=== PATIENT | male | born 1960 | race Caucasian/White ===

== ENCOUNTER 2017-01-10 18:17 | Inpatient (IN) | payer MEDICARE, MEDICAID ==
[~2017-01-10] VITALS: Ht 172.7 cm; Wt 86.2 kg
[~2017-01-10 18:17] MED LIST: ASPI325T2 PO; DOCU-138 PO; INSLAN SQ; KDUR20 PO; KEPP500 PO; LEVO500T15 PO; METF10002 PO; METO25TA6 PO; SIMV40TA2 PO; SITA100T6 PO
[2017-01-10] MEDS ORDERED: SODIUM CHLORIDE 0.9% 1,000 ML IV ONE (18:27)
[2017-01-10] MEDS ORDERED: LEVETIRACETAM 1,000 MG in SODIUM CHLORIDE 0.9% 100 ML IV ONE (18:30)
[2017-01-10 19:14] LABS: DIFFERENTIAL COMMENT 0; HEMATOCRIT. 38.2 % (42.0-52.0); HEMOGLOBIN. 12.8 g/dL (14.0-18.0); LYMPHOCYTES % 14.1 % (20.0-50.0); MEAN CORPUSCULAR HEMOGLOBIN 26.4 pg (28.0-32.0); MEAN CORPUSCULAR HGB CONC 33.6 g/dL (31.0-37.0); MEAN CORPUSCULAR VOLUME 78.5 fL (80.0-94.0); MEAN PLATELET VOLUME 8.7 fl (7.4-10.4); MONOCYTES % 6.2 % (2.0-8.0); NEUTROPHILS % 75.7 % (40.0-76.0); PLATELET 324 x1000/uL (130-400); RED BLOOD CELL COUNT 4.86 mill/uL (4.7-6.1); RED CELL DISTRIBUTION WIDTH 13.1 % (11.6-14.6); WHITE BLOOD COUNT 16.4 x1000/uL (4.5-11.0)
[2017-01-10 19:21] LABS: CHLORIDE 96 mEq/L (98-107); INDEX HEMOLYSI 1 (1-3); INDEX ICTERIC 1 (1-4); INDEX LIPEMIC 1 (1-3)
[2017-01-10 19:23] LABS: AMMONIA 17 uMol/L (<32); INDEX HEMOLYSI 1 (1-3); PROTHROMBIN TIME 10.2 sec
[2017-01-10 19:27] LABS: ACETAMINOPHEN < 2 ug/mL (10-30); ALANINE AMINOTRANSFERASE 35 IU/L (13-61); ALBUMIN 3.3 g/dL (3.4-5.0); ANION GAP 14; CALCIUM 9.1 mg/dL (8.5-10.1); CARBON DIOXIDE 28 mEq/L (21-32); CREATINE KINASE 42 IU/L (39-308); ETHANOL BLOOD < 10 mg/dL; LIPASE 747 IU/L (73-393); PHENYTOIN 0.6 ug/mL (10-20); TROPONIN I < 0.02 ng/mL (0.00-0.04); UREA NITROGEN BLOOD 12 mg/dL (7-21); eGFR > 60 mL/min (>60)
[2017-01-10 19:31] LABS: CARBAMAZEPINE < 0.5 ug/mL (4-12); PHENOBARBITAL < 2.1 ug/mL (15.0-40.0)
[2017-01-10 19:33] LABS: THYROID STIMULATING HORMONE 0.95 uIU/mL (0.36-3.74)
[2017-01-10 19:34] LABS: VALPROIC ACID 3.2 ug/mL (50-100)
[2017-01-10 21:10] LABS: CLARITY URINE CLEAR (CLEAR); COLOR URINE YELLOW (YELLOW); GLUCOSE URINE 3+ (NEGATIVE); KETONES URINE NEGATIVE (NEGATIVE); LEUKOCYTE ESTERASE URINE NEGATIVE (NEGATIVE); NITRITE URINE NEGATIVE (NEGATIVE); OCCULT BLOOD URINE 1+ (NEGATIVE); PROTEIN URINE 4+ (NEGATIVE); SPECIFIC GRAVITY URINE 1.016 (1.005-1.030); UROBILINOGEN URINE 0.2 E.U./dL (0.2-1.0)
[2017-01-10 21:37] LABS: BACTERIA URINE TRACE; SQUAMOUS EPITHELIAL CELL URINE NONE SEEN /lpf (RARE/1+); WBC URINE 0-2 /hpf (0-2)
[2017-01-10] MEDS ORDERED: ACETAMINOPHEN 325MG TABLET PO STA (23:12)
[2017-01-10] MEDS ORDERED: LABETALOL HCL 20MG/4ML CARPUJECT IV ONE (23:15)
[2017-01-10] MEDS ORDERED: LABETALOL 5MG/ML SYR 20 MG/4 ML SYRINGE IV NR (23:30)
[2017-01-11] VITALS (7 sets, daily range): BP systolic 140–176; BP diastolic 77–94
[2017-01-11] MEDS ORDERED: MAGNESIUM/ALUMINUM HYDROXIDE/SIMETHICONE 30ML UDC PO PRN
[2017-01-11] MEDS ORDERED: IPRATROPIUM/ALBUTEROL 0.5-3(2.5)MG/3ML NEB INH PRN
[2017-01-11] MEDS ORDERED: DEXTROSE 50% WATER 50ML SYRINGE IV PRN (00:45)
[2017-01-11] MEDS ORDERED: PHENYTOIN SODIUM 1,000 MG in SODIUM CHLORIDE 0.9% 100 ML IV NR (01:00)
[2017-01-11] MEDS ORDERED: VANCOMYCIN 1 G PREMIX 200 ML IV NR (03:00)
[2017-01-11] MEDS: CLONIDINE 0.1MG TABLET PO PRN ×2 (04:35→17:29)
[2017-01-11] MEDS: BLOOD SUGAR DIAGNOSTIC STRIP TEST SCH ×4 (05:46→20:26)
[2017-01-11] MEDS ORDERED: PIPERACILLIN/TAZ 3.375G PREMIX 50 ML IV SCH (06:00)
[2017-01-11] MEDS: INSULIN LISPRO 100 UNITS/ML SUBCUT SCH ×4 (06:16→22:00)
[2017-01-11] MEDS: PHENYTOIN SODIUM EXTENDED 100MG CAPSULE PO SCH ×3 (06:16→21:56)
[2017-01-11 06:59] LABS: ANION GAP 14; CALCIUM 8.7 mg/dL (8.5-10.1); CARBON DIOXIDE 28 mEq/L (21-32); CHLORIDE 97 mEq/L (98-107); HDL CHOLESTEROL 45 mg/dL (40-59); INDEX HEMOLYSI 1 (1-3); INDEX ICTERIC 1 (1-4); INDEX LIPEMIC 1 (1-3); LDL CHOLESTEROL 114 mg/dL (5-100); TRIGLYCERIDE 339 mg/dL (0-150); UREA NITROGEN BLOOD 11 mg/dL (7-21); eGFR > 60 mL/min (>60)
[2017-01-11 07:03] LABS: BASOPHILS % 0.7 % (0.0-2.0); DIFFERENTIAL COMMENT 0; EOSINOPHILS % 0.3 % (0.0-5.0); HEMATOCRIT. 38.4 % (42.0-52.0); HEMOGLOBIN. 12.8 g/dL (14.0-18.0); LYMPHOCYTES % 15.8 % (20.0-50.0); MEAN CORPUSCULAR HEMOGLOBIN 26.6 pg (28.0-32.0); MEAN CORPUSCULAR HGB CONC 33.3 g/dL (31.0-37.0); MEAN CORPUSCULAR VOLUME 79.9 fL (80.0-94.0); MEAN PLATELET VOLUME 9.1 fl (7.4-10.4); MONOCYTES % 7.1 % (2.0-8.0); NEUTROPHILS % 76.1 % (40.0-76.0); PLATELET 311 x1000/uL (130-400); RED BLOOD CELL COUNT 4.81 mill/uL (4.7-6.1); RED CELL DISTRIBUTION WIDTH 13.2 % (11.6-14.6); WHITE BLOOD COUNT 15.8 x1000/uL (4.5-11.0)
[2017-01-11 07:04] LABS: CREATINE KINASE 45 IU/L (39-308); CREATINE KINASE MB FRACTION 0.5 ng/mL (0.5-3.6); INDEX HEMOLYSI 1 (1-3); TROPONIN I < 0.02 ng/mL (0.00-0.04)
[2017-01-11 08:18] LABS: *AMPHETAMINES SCREEN URINE NEGATIVE (NEGATIVE); *BARBITURATES SCREEN URINE NEGATIVE (NEGATIVE); *BENZODIAZEPINES SCREEN URINE NEGATIVE (NEGATIVE); *COCAINE SCREEN URINE NEGATIVE (NEGATIVE); CANNABINOID URINE SCREEN NEGATIVE (NEGATIVE); ECSTASY MDMA SCREEN URINE NEGATIVE (NEGATIVE); METHADONE URINE SCREEN NEGATIVE (NEGATIVE); OPIATES URINE SCREEN NEGATIVE (NEGATIVE); PHENCYCLIDINE URINE SCREEN NEGATIVE (NEGATIVE)
[2017-01-11] MEDS ORDERED: LEVETIRACETAM 500MG TABLET PO SCH (09:00)
[2017-01-11] MEDS ORDERED: VANCOMYCIN 750 MG PREMIX 150 ML IV SCH (11:00)
[2017-01-11] MEDS: ACETAMINOPHEN 325MG TABLET PO PRN ×2 (11:30→20:43)
[2017-01-11] MEDS: CEFEPIME 2,000 MG in DEXT 5% WATER 100 ML IV SCH ×2 (15:32→23:59)
[2017-01-11 17:54] LABS: CREATINE KINASE 50 IU/L (39-308); CREATINE KINASE MB FRACTION < 0.5 ng/mL (0.5-3.6); INDEX HEMOLYSI 1 (1-3); PHENYTOIN 10.7 ug/mL (10-20); TROPONIN I < 0.02 ng/mL (0.00-0.04)
[2017-01-11] MEDS: ONDANSETRON HCL 4MG/2ML VIAL IV PRN (20:36)
[2017-01-11] MEDS: LEVETIRACETAM 250MG TABLET PO SCH (20:43)
[2017-01-11] MEDS: VANCOMYCIN 1 G PREMIX 200 ML IV SCH (20:46)
[2017-01-12] VITALS: BP 147/82
[2017-01-12 04:00] VITALS: BP 166/94
[2017-01-12] MEDS: PHENYTOIN SODIUM EXTENDED 100MG CAPSULE PO SCH ×3 (05:26→21:02)
[2017-01-12] MEDS: CLONIDINE 0.1MG TABLET PO PRN ×2 (05:26→23:46)
[2017-01-12] MEDS: ACETAMINOPHEN 325MG TABLET PO PRN ×3 (05:41→23:41)
[2017-01-12] MEDS: VANCOMYCIN 1 G PREMIX 200 ML IV SCH ×2 (06:07→13:15)
[2017-01-12] MEDS: BLOOD SUGAR DIAGNOSTIC STRIP TEST SCH ×4 (06:07→20:46)
[2017-01-12] MEDS: INSULIN LISPRO 100 UNITS/ML SUBCUT SCH ×4 (06:17→21:02)
[2017-01-12 08:00] VITALS: BP 125/86
[2017-01-12] MEDS ORDERED: METFORMIN HCL 500MG TABLET PO SCH (08:20)
[2017-01-12 08:25] LABS: BASOPHILS % 0.7 % (0.0-2.0); EOSINOPHILS % 0.2 % (0.0-5.0); HEMATOCRIT. 34.4 % (42.0-52.0); HEMOGLOBIN. 11.4 g/dL (14.0-18.0); LYMPHOCYTES % 15.9 % (20.0-50.0); MEAN CORPUSCULAR HEMOGLOBIN 26.6 pg (28.0-32.0); MEAN CORPUSCULAR VOLUME 80.6 fL (80.0-94.0); MEAN PLATELET VOLUME 9.3 fl (7.4-10.4); MONOCYTES % 9.5 % (2.0-8.0); NEUTROPHILS % 73.7 % (40.0-76.0); PLATELET 266 x1000/uL (130-400); RED BLOOD CELL COUNT 4.27 mill/uL (4.7-6.1); RED CELL DISTRIBUTION WIDTH 13.1 % (11.6-14.6)
[2017-01-12] MEDS: ATORVASTATIN CALCIUM 20MG TABLET PO SCH (08:31)
[2017-01-12] MEDS: LEVETIRACETAM 250MG TABLET PO SCH ×2 (08:31→21:02)
[2017-01-12] MEDS: CEFEPIME 2,000 MG in DEXT 5% WATER 100 ML IV SCH ×2 (08:32→21:02)
[2017-01-12] MEDS: DOCUSATE SODIUM 100MG CAPSULE PO SCH ×2 (08:32→17:37)
[2017-01-12 08:39] LABS: CALCIUM 8.5 mg/dL (8.5-10.1); PHENYTOIN 7.5 ug/mL (10-20)
[2017-01-12] MEDS ORDERED: MEDICATION NOT ON FORMULARY EA (Sitagliptin Phosphate (Januvia) 100 MG) PO SCH (09:00)
[2017-01-12] MEDS ORDERED: MEDICATION NOT ON FORMULARY EA (Simvastatin (Zocor) 40 MG) PO SCH (09:00)
[2017-01-12] MEDS: LINAGLIPTIN 5MG TABLET PO SCH (09:56)
[2017-01-12] MEDS ORDERED: PHENYTOIN SODIUM 500 MG in SODIUM CHLORIDE 0.9% 50 ML IV NR (11:30)
[2017-01-12 12:00] VITALS: BP 157/85
[2017-01-12 16:00] VITALS: BP 184/96
[2017-01-12] MEDS: LOSARTAN POTASSIUM 100 MG TABLET PO SCH (16:30)
[2017-01-12] MEDS: HYDROCODONE/ACETAMINOPHEN 5/325MG TABLET PO PRN ×2 (16:33→20:59)
[2017-01-12] MEDS: ONDANSETRON HCL 4MG/2ML VIAL IV PRN (18:00)
[2017-01-12 20:00] VITALS: BP 158/86
[2017-01-12] MEDS: INSULIN DETEMIR UD 100 UNITS/ML SYR SUBCUT SCH (21:40)
[2017-01-13] VITALS: BP 165/98
[2017-01-13 04:00] VITALS: BP 157/89
[2017-01-13] MEDS: BLOOD SUGAR DIAGNOSTIC STRIP TEST SCH ×4 (05:41→20:30)
[2017-01-13] MEDS: ACETAMINOPHEN 325MG TABLET PO PRN ×3 (05:56→23:33)
[2017-01-13] MEDS: PHENYTOIN SODIUM EXTENDED 100MG CAPSULE PO SCH ×2 (05:56→17:01)
[2017-01-13 06:31] LABS: BASOPHILS % 0.8 % (0.0-2.0); DIFFERENTIAL COMMENT 0; EOSINOPHILS % 0.2 % (0.0-5.0); HEMOGLOBIN. 11.7 g/dL (14.0-18.0); LYMPHOCYTES % 12.4 % (20.0-50.0); MEAN CORPUSCULAR HEMOGLOBIN 26.5 pg (28.0-32.0); MEAN CORPUSCULAR HGB CONC 33.3 g/dL (31.0-37.0); MEAN CORPUSCULAR VOLUME 79.6 fL (80.0-94.0); MEAN PLATELET VOLUME 8.8 fl (7.4-10.4); MONOCYTES % 8.1 % (2.0-8.0); NEUTROPHILS % 78.5 % (40.0-76.0); PLATELET 269 x1000/uL (130-400); RED BLOOD CELL COUNT 4.39 mill/uL (4.7-6.1)
[2017-01-13] MEDS: INSULIN LISPRO 100 UNITS/ML SUBCUT SCH ×4 (06:37→21:09)
[2017-01-13 07:01] LABS: CALCIUM 8.5 mg/dL (8.5-10.1); PHENYTOIN 11.1 ug/mL (10-20)
[2017-01-13 08:00] VITALS: BP 149/81
[2017-01-13] MEDS: LOSARTAN POTASSIUM 100 MG TABLET PO SCH (09:11)
[2017-01-13] MEDS: ATORVASTATIN CALCIUM 20MG TABLET PO SCH (09:11)
[2017-01-13] MEDS: CEFEPIME 2,000 MG in DEXT 5% WATER 100 ML IV SCH ×2 (09:11→20:03)
[2017-01-13] MEDS: LINAGLIPTIN 5MG TABLET PO SCH (09:11)
[2017-01-13] MEDS: LEVETIRACETAM 250MG TABLET PO SCH ×2 (09:12→20:27)
[2017-01-13] MEDS: DOCUSATE SODIUM 100MG CAPSULE PO SCH ×2 (09:12→17:01)
[2017-01-13] MEDS: METOPROLOL TARTRATE 25MG TABLET PO SCH ×2 (09:12→20:26)
[2017-01-13 09:26] LABS: INDEX HEMOLYSI 1 (1-3); INDEX ICTERIC 1 (1-4); INDEX LIPEMIC 1 (1-3); IRON 44 ug/dL (50-175); TOTAL IRON BINDING CAPACITY 252 ug/dL (250-450)
[2017-01-13] MEDS: INSULIN DETEMIR UD 100 UNITS/ML SYR SUBCUT SCH ×2 (10:50→21:09)
[2017-01-13] MEDS: HYDROCODONE/ACETAMINOPHEN 5/325MG TABLET PO PRN (11:37)
[2017-01-13 12:00] VITALS: BP 165/86
[2017-01-13] MEDS: CLONIDINE 0.1MG TABLET PO PRN (13:04)
[2017-01-13 16:00] VITALS: BP 124/75
[2017-01-13 20:00] VITALS: BP 110/61
[2017-01-13] MEDS: VANCOMYCIN 1 G PREMIX 200 ML IV SCH (21:08)
[2017-01-14] VITALS: BP 146/80
[2017-01-14 04:00] VITALS: BP 151/84
[2017-01-14] MEDS: BLOOD SUGAR DIAGNOSTIC STRIP TEST SCH ×4 (05:49→21:33)
[2017-01-14] MEDS: ACETAMINOPHEN 325MG TABLET PO PRN ×3 (05:51→18:12)
[2017-01-14 05:55] LABS: BASOPHILS % 0.8 % (0.0-2.0); DIFFERENTIAL COMMENT 0; EOSINOPHILS % 1.8 % (0.0-5.0); HEMATOCRIT. 34.2 % (42.0-52.0); HEMOGLOBIN. 11.4 g/dL (14.0-18.0); LYMPHOCYTES % 16.7 % (20.0-50.0); MEAN CORPUSCULAR HEMOGLOBIN 26.6 pg (28.0-32.0); MEAN CORPUSCULAR HGB CONC 33.3 g/dL (31.0-37.0); MEAN CORPUSCULAR VOLUME 79.9 fL (80.0-94.0); MEAN PLATELET VOLUME 9.1 fl (7.4-10.4); MONOCYTES % 8.6 % (2.0-8.0); NEUTROPHILS % 72.1 % (40.0-76.0); PLATELET 271 x1000/uL (130-400); RED BLOOD CELL COUNT 4.28 mill/uL (4.7-6.1); RED CELL DISTRIBUTION WIDTH 12.9 % (11.6-14.6); WHITE BLOOD COUNT 14.9 x1000/uL (4.5-11.0)
[2017-01-14] MEDS: INSULIN LISPRO 100 UNITS/ML SUBCUT SCH ×4 (06:28→21:44)
[2017-01-14 06:36] LABS: CALCIUM 8.2 mg/dL (8.5-10.1)
[2017-01-14 08:00] VITALS: BP 128/73
[2017-01-14] MEDS: METOPROLOL TARTRATE 25MG TABLET PO SCH ×2 (08:34→21:00)
[2017-01-14] MEDS: PHENYTOIN SODIUM EXTENDED 100MG CAPSULE PO SCH ×2 (08:34→18:11)
[2017-01-14] MEDS: CEFEPIME 2,000 MG in DEXT 5% WATER 100 ML IV SCH (08:35)
[2017-01-14] MEDS: LEVETIRACETAM 250MG TABLET PO SCH ×2 (08:35→21:35)
[2017-01-14] MEDS: ATORVASTATIN CALCIUM 20MG TABLET PO SCH (08:35)
[2017-01-14] MEDS: LOSARTAN POTASSIUM 100 MG TABLET PO SCH (08:35)
[2017-01-14] MEDS: DOCUSATE SODIUM 100MG CAPSULE PO SCH ×2 (08:35→18:11)
[2017-01-14] MEDS: LINAGLIPTIN 5MG TABLET PO SCH (08:35)
[2017-01-14] MEDS ORDERED: PHENYTOIN SODIUM 600 MG in SODIUM CHLORIDE 0.9% 100 ML IV NR (09:00)
[2017-01-14] MEDS: INSULIN DETEMIR UD 100 UNITS/ML SYR SUBCUT SCH ×2 (10:10→21:43)
[2017-01-14 12:00] VITALS: BP 114/63
[2017-01-14] MEDS ORDERED: PHENYTOIN SODIUM EXTENDED 100MG CAPSULE PO NR (14:30)
[2017-01-14 20:00] VITALS: BP 102/60
[2017-01-14] MEDS: VANCOMYCIN 1 G PREMIX 200 ML IV SCH (21:35)
[2017-01-14] MEDS: HYDROCODONE/ACETAMINOPHEN 5/325MG TABLET PO PRN (22:17)
[2017-01-15] VITALS: BP 117/70
[2017-01-15 04:00] VITALS: BP 141/82
[2017-01-15] MEDS: BLOOD SUGAR DIAGNOSTIC STRIP TEST SCH ×4 (06:02→21:39)
[2017-01-15] MEDS: INSULIN LISPRO 100 UNITS/ML SUBCUT SCH ×4 (06:07→21:51)
[2017-01-15 07:39] LABS: CALCIUM 8.1 mg/dL (8.5-10.1); PHENYTOIN 12.8 ug/mL (10-20)
[2017-01-15 08:00] VITALS: BP 133/73
[2017-01-15 08:27] LABS: BASOPHILS % 0.6 % (0.0-2.0); EOSINOPHILS % 4.2 % (0.0-5.0); HEMATOCRIT. 34.8 % (42.0-52.0); HEMOGLOBIN. 11.4 g/dL (14.0-18.0); MEAN CORPUSCULAR HEMOGLOBIN 26.4 pg (28.0-32.0); MEAN CORPUSCULAR HGB CONC 32.8 g/dL (31.0-37.0); MEAN CORPUSCULAR VOLUME 80.6 fL (80.0-94.0); MEAN PLATELET VOLUME 9.6 fl (7.4-10.4); MONOCYTES % 8.3 % (2.0-8.0); NEUTROPHILS % 74.9 % (40.0-76.0); PLATELET 255 x1000/uL (130-400); RED BLOOD CELL COUNT 4.32 mill/uL (4.7-6.1); RED CELL DISTRIBUTION WIDTH 12.9 % (11.6-14.6); WHITE BLOOD COUNT 14.7 x1000/uL (4.5-11.0)
[2017-01-15] MEDS: PHENYTOIN SODIUM EXTENDED 100MG CAPSULE PO SCH ×2 (10:31→17:10)
[2017-01-15] MEDS: LEVETIRACETAM 250MG TABLET PO SCH ×2 (10:32→21:39)
[2017-01-15] MEDS: ATORVASTATIN CALCIUM 20MG TABLET PO SCH (10:33)
[2017-01-15] MEDS: DOCUSATE SODIUM 100MG CAPSULE PO SCH ×2 (10:34→17:10)
[2017-01-15] MEDS: LINAGLIPTIN 5MG TABLET PO SCH (10:34)
[2017-01-15] MEDS: LOSARTAN POTASSIUM 100 MG TABLET PO SCH (10:34)
[2017-01-15] MEDS: METOPROLOL TARTRATE 25MG TABLET PO SCH ×2 (10:34→21:40)
[2017-01-15] MEDS: INSULIN DETEMIR UD 100 UNITS/ML SYR SUBCUT SCH ×2 (10:36→21:49)
[2017-01-15] MEDS: ACETAMINOPHEN 325MG TABLET PO PRN (10:43)
[2017-01-15 12:00] VITALS: BP 126/71
[2017-01-15] MEDS: LINEZOLID 600 MG PREMIX 300 ML IV SCH ×2 (12:25→21:40)
[2017-01-15 16:00] VITALS: BP 122/67
[2017-01-15 20:00] VITALS: BP 127/68
[2017-01-15] MEDS: HYDROCODONE/ACETAMINOPHEN 5/325MG TABLET PO PRN (21:52)
[2017-01-16] VITALS: BP 135/79
[2017-01-16 04:00] VITALS: BP 143/75
[2017-01-16 06:09] LABS: BASOPHILS % 0.5 % (0.0-2.0); EOSINOPHILS % 4.8 % (0.0-5.0); HEMATOCRIT. 31.7 % (42.0-52.0); HEMOGLOBIN. 10.5 g/dL (14.0-18.0); LYMPHOCYTES % 13.6 % (20.0-50.0); MEAN CORPUSCULAR HEMOGLOBIN 26.7 pg (28.0-32.0); MEAN CORPUSCULAR HGB CONC 33.1 g/dL (31.0-37.0); MEAN CORPUSCULAR VOLUME 80.7 fL (80.0-94.0); MEAN PLATELET VOLUME 9.6 fl (7.4-10.4); MONOCYTES % 8.3 % (2.0-8.0); NEUTROPHILS % 72.8 % (40.0-76.0); PLATELET 247 x1000/uL (130-400); RED BLOOD CELL COUNT 3.92 mill/uL (4.7-6.1); RED CELL DISTRIBUTION WIDTH 13.3 % (11.6-14.6); WHITE BLOOD COUNT 16.1 x1000/uL (4.5-11.0)
[2017-01-16] MEDS: INSULIN LISPRO 100 UNITS/ML SUBCUT SCH ×2 (06:20→12:57)
[2017-01-16] MEDS: BLOOD SUGAR DIAGNOSTIC STRIP TEST SCH ×2 (06:20→11:45)
[2017-01-16 06:52] LABS: PHENYTOIN 10.6 ug/mL (10-20)
[2017-01-16 08:00] VITALS: BP 145/74
[2017-01-16] MEDS: ATORVASTATIN CALCIUM 20MG TABLET PO SCH (09:12)
[2017-01-16] MEDS: METOPROLOL TARTRATE 25MG TABLET PO SCH (09:13)
[2017-01-16] MEDS: PHENYTOIN SODIUM EXTENDED 100MG CAPSULE PO SCH (09:13)
[2017-01-16] MEDS: LINAGLIPTIN 5MG TABLET PO SCH (09:14)
[2017-01-16] MEDS: LEVETIRACETAM 250MG TABLET PO SCH (09:14)
[2017-01-16] MEDS: DOCUSATE SODIUM 100MG CAPSULE PO SCH (09:14)
[2017-01-16] MEDS: LOSARTAN POTASSIUM 100 MG TABLET PO SCH (09:14)
[2017-01-16] MEDS: LINEZOLID 600 MG PREMIX 300 ML IV SCH (09:16)
[2017-01-16] MEDS: INSULIN DETEMIR UD 100 UNITS/ML SYR SUBCUT SCH (10:30)
[2017-01-16 12:00] VITALS: BP 131/71
[2017-01-16 14:12] VITALS: BP 131/71
[2017-01-16 16:00] VITALS: BP 121/63
== END 2017-01-16 17:05 | disposition home or self-care (01) | DRG 871 ==
LOC: ER 18:18 → 5WST 22:24
PROVIDERS: ADMIT Internal Medicine; ATTEND Internal Medicine
PROC: 02HV33Z Insertion of Infusion Device into Superior Vena Cava, Percutaneous Approach (ICD-10-PCS; principal; 2017-01-11)
PROC: B5181ZA Fluoroscopy of Superior Vena Cava using Low Osmolar Contrast, Guidance (ICD-10-PCS; 2017-01-11)
PROC: B548ZZA Ultrasonography of Superior Vena Cava, Guidance (ICD-10-PCS; 2017-01-11)
DX: A41.02 Sepsis due to Methicillin resistant Staphylococcus aureus (principal); G92 Toxic encephalopathy; G91.9 Hydrocephalus, unspecified; I67.82 Cerebral ischemia; J98.11 Atelectasis; B69.0 Cysticercosis of central nervous system; N17.9 Acute kidney failure, unspecified; I69.354 Hemiplegia and hemiparesis following cerebral infarction affecting left non-dominant side; I10 Essential (primary) hypertension; I16.0 Hypertensive urgency; D64.9 Anemia, unspecified; G40.909 Epilepsy, unspecified, not intractable, without status epilepticus; E11.65 Type 2 diabetes mellitus with hyperglycemia; E78.00 Pure hypercholesterolemia, unspecified; E78.5 Hyperlipidemia, unspecified; F17.200 Nicotine dependence, unspecified, uncomplicated; Y90.0 Blood alcohol level of less than 20 mg/100 ml; Z79.82 Long term (current) use of aspirin; Z79.84 Long term (current) use of oral hypoglycemic drugs; Z79.899 Other long term (current) drug therapy; Z91.19 Patient's noncompliance with other medical treatment and regimen; Z98.2 Presence of cerebrospinal fluid drainage device; Z98.890 Other specified postprocedural states
CPT/HCPCS: 36415; 36569; 70450; 70551; 71010; 76770; 76937; 77001; 80048; 80053; 80061; 80156; 80165; 80184; 80185; 80202; 80302; 80305; 80329; 81001; 82140; 82542; 82550; 82553; 82962; 83036; 83540; 83550; 83605; 83690; 84443; 84484; 85025; 85610; 85651; 87040; 87070; 87077; 87086; 87205; 93005; 93970; 96365; 96366; 96375; 99291; A6261; A9547; C1725; G0482; J0692; J1165; J1815; J1953; J2020; J2405; J2543; J3370; J3490; J7030; J7040; J7050; J7060

== ENCOUNTER 2022-11-09 23:07 | Emergency (ER) | payer MEDICARE, MEDICAID ==
[~2022-11-09] VITALS: Ht 172.7 cm; Wt 78.0 kg
[~2022-11-09 23:07] MED LIST changes: +ASPI-986 PO; -ASPI325T2 PO; -LEVO500T15 PO; +LEVO500T2 PO; +METF-416 PO; -METF10002 PO; +SITA100T11 PO; -SITA100T6 PO
[2022-11-10] MEDS ORDERED: ALBUTEROL (0.5%) 2.5MG/0.5ML NEB HHN ONE (00:15)
[2022-11-10 00:19] LABS: BASOPHILS % 0.8 % (0.0-2.0); EOSINOPHILS % 6.5 % (0.0-5.0); HEMATOCRIT. 27.4 % (42.0-52.0); HEMOGLOBIN. 9.1 g/dL (14.0-18.0); LYMPHOCYTES % 12.4 % (20.0-50.0); MEAN CORPUSCULAR HEMOGLOBIN 26.8 pg (28.0-32.0); MEAN CORPUSCULAR VOLUME 81.2 fL (80.0-94.0); MONOCYTES % 8.8 % (2.0-8.0); NEUTROPHILS % 71.5 % (40.0-76.0); PLATELET 404 x1000/uL (130-400); RED BLOOD CELL COUNT 3.37 mill/uL (4.7-6.1); RED CELL DISTRIBUTION WIDTH 14.4 % (11.6-14.6)
[2022-11-10 00:25] LABS: CHLORIDE 101 mEq/L (98-107)
[2022-11-10] MEDS ORDERED: CLONIDINE 0.2MG TABLET PO NR (02:00)
[2022-11-10 10:07] VITALS: BP 134/58
[2022-11-10] MEDS ORDERED: HYDROCODONE/ACETAMINOPHEN 5/325MG TABLET PO PRN (12:00)
[2022-11-10] MEDS ORDERED: ONDANSETRON HCL 4MG/2ML INJ IV PRN (12:00)
[2022-11-10] MEDS ORDERED: LORAZEPAM 0.5MG TABLET PO PRN (12:00)
[2022-11-10] MEDS ORDERED: CLONIDINE 0.1MG TABLET PO PRN (12:00)
[2022-11-10] MEDS ORDERED: DOCUSATE SODIUM 100MG CAPSULE PO PRN (12:00)
[2022-11-10] MEDS ORDERED: IPRATROPIUM/ALBUTEROL 0.5-3(2.5)MG/3ML NEB HHN PRN (12:00)
[2022-11-10] MEDS ORDERED: ASPIRIN 81MG TABLET PO SCH (12:00)
[2022-11-10] MEDS ORDERED: ACETAMINOPHEN 325MG TABLET PO PRN ×2 (12:00)
[2022-11-10] MEDS ORDERED: NALOXONE HCL 0.4MG/ML VIAL IV PRN (12:15)
[2022-11-10] MEDS ORDERED: METOPROLOL TARTRATE 25MG TABLET PO SCH (12:30)
[2022-11-10 14:17] LABS: TOTAL IRON BINDING CAPACITY 208 ug/dL (250-450)
[2022-11-10 14:42] LABS: FERRITIN 111 ng/mL (22-322)
[2022-11-10 15:21] LABS: FOLIC ACID (FOLATE) SERUM >20 ng/mL ng/mL (>5.38); VITAMIN B12 SERUM 895 pg/mL (211-911)
[2022-11-10] MEDS ORDERED: DOCUSATE SODIUM 100MG CAPSULE PO SCH (17:00)
[2022-11-10] MEDS ORDERED: LEVETIRACETAM 500MG TABLET PO SCH (17:00)
[2022-11-10] MEDS ORDERED: ATORVASTATIN CALCIUM 40MG TABLET PO SCH (21:00)
== END 2022-11-10 12:44 | disposition left against medical advice (07) ==
LOC: ER 23:07 → CANBEDREQ 11-11 01:52
DX: I16.1 Hypertensive emergency (principal); E11.65 Type 2 diabetes mellitus with hyperglycemia; J96.00 Acute respiratory failure, unspecified whether with hypoxia or hypercapnia; E78.00 Pure hypercholesterolemia, unspecified; I25.2 Old myocardial infarction; G40.909 Epilepsy, unspecified, not intractable, without status epilepticus; H54.7 Unspecified visual loss; I25.10 Atherosclerotic heart disease of native coronary artery without angina pectoris; D72.829 Elevated white blood cell count, unspecified; D72.821 Monocytosis (symptomatic); Z86.73 Personal history of transient ischemic attack (TIA), and cerebral infarction without residual deficits; Z86.61 Personal history of infections of the central nervous system; Z20.822 Contact with and (suspected) exposure to COVID-19; Z89.422 Acquired absence of other left toe(s); Z89.421 Acquired absence of other right toe(s); Z79.84 Long term (current) use of oral hypoglycemic drugs; Z79.82 Long term (current) use of aspirin; Z79.899 Other long term (current) drug therapy
CPT/HCPCS: 36415; 71045; 80053; 82607; 82728; 82746; 83540; 83550; 83880; 84145; 84484; 85025; 87426; 87804; 93005; 94640; 99285; C9803

== ENCOUNTER 2023-02-12 00:29 | Inpatient (IN) | payer MEDICARE, MEDICAID ==
[~2023-02-12] VITALS: Ht 172.7 cm; Wt 82.6 kg
[~2023-02-12 00:29] MED LIST changes: +SIMV-345 PO; -SIMV40TA2 PO
[2023-02-12] MEDS ORDERED: NITROGLYCERIN 50MG PREMIX 250 ML IV ONE (00:45)
[2023-02-12] MEDS ORDERED: NITROGLYCERIN 50MG PREMIX 250 ML IV NR (02:45)
[2023-02-12 02:46] LABS: BASOPHILS % 1.1 % (0.0-2.0); EOSINOPHILS % 3.4 % (0.0-5.0); HEMATOCRIT. 33.5 % (42.0-52.0); HEMOGLOBIN. 11.1 g/dL (14.0-18.0); LYMPHOCYTES % 8.9 % (20.0-50.0); MEAN CORPUSCULAR HEMOGLOBIN 27.1 pg (28.0-32.0); MEAN CORPUSCULAR VOLUME 81.8 fL (80.0-94.0); MONOCYTES % 5.3 % (2.0-8.0); NEUTROPHILS % 81.3 % (40.0-76.0); RED CELL DISTRIBUTION WIDTH 14.2 % (11.6-14.6)
[2023-02-12 02:49] LABS: CLARITY URINE CLEAR (CLEAR); COLOR URINE YELLOW (YELLOW); KETONES URINE NEGATIVE (NEGATIVE); LEUKOCYTE ESTERASE URINE NEGATIVE (NEGATIVE); NITRITE URINE NEGATIVE (NEGATIVE); OCCULT BLOOD URINE NEGATIVE (NEGATIVE); PH URINE 6.5 (4.5-8.0); PROTEIN URINE 3+ (NEGATIVE); SPECIFIC GRAVITY URINE 1.012 (1.005-1.030); UROBILINOGEN URINE 0.2 E.U./dL (0.2-1.0)
[2023-02-12 02:55] LABS: CHLORIDE 102 mEq/L (98-107)
[2023-02-12 02:56] LABS: D-DIMER 1.08 mg/L FEU (<0.50); PROTHROMBIN TIME 10.9 sec (9.6-11.0)
[2023-02-12 03:01] LABS: *AMPHETAMINES SCREEN URINE NEGATIVE (NEGATIVE); *BARBITURATES SCREEN URINE NEGATIVE (NEGATIVE); *BENZODIAZEPINES SCREEN URINE NEGATIVE (NEGATIVE); *COCAINE SCREEN URINE NEGATIVE (NEGATIVE); CANNABINOID URINE SCREEN NEGATIVE (NEGATIVE); METHADONE URINE SCREEN NEGATIVE (NEGATIVE); OPIATES URINE SCREEN NEGATIVE (NEGATIVE); PHENCYCLIDINE URINE SCREEN NEGATIVE (NEGATIVE)
[2023-02-12 03:04] LABS: ETHANOL BLOOD < 10 mg/dL
[2023-02-12] MEDS ORDERED: ASPIRIN 325MG EC TABLET PO ONE (04:30)
[2023-02-12] MEDS ORDERED: HEPARIN 5000 UNITS/ML VIAL IV ONE (04:30)
[2023-02-12] MEDS ORDERED: DOCUSATE SODIUM 100MG CAPSULE PO PRN (08:30)
[2023-02-12] MEDS ORDERED: GUAIFENESIN 200MG/10ML SUGAR FREE UDC PO PRN (08:30)
[2023-02-12] MEDS ORDERED: ACETAMINOPHEN 325MG TABLET PO PRN (08:30)
[2023-02-12] MEDS ORDERED: CLONIDINE 0.1MG TABLET PO PRN (08:30)
[2023-02-12] MEDS ORDERED: ASPIRIN 81MG EC TABLET PO SCH (09:00)
[2023-02-12 09:06] LABS: BG BASE EXCESS 0.1 mmol/L (-2.0-2.0); BG DEOXYHEMOGLOBIN 4.4 % (0.0-5.0); BG HCO3 ACT 24.7 mmol/L (22.0-26.0); BG METHEMOGLOBIN 0.2 % (0.0-1.5); BG OXYGEN SATURATION 95.6 % (92.0-98.5); BG OXYHEMOGLOBIN 95.4 % (94.0-97.0); BG PCO2 40.1 mmHg (35.0-45.0); BG PH 7.408 (7.350-7.450); BG PO2 78.1 mmHg (75.0-100.0); BG SAMPLE SITE RIGHT BRACHIAL; BG TOTAL HEMOGLOBIN 9.2 g/dL (12.0-18.0); BG VENT MODE ROOM AIR
[2023-02-12] MEDS ORDERED: DEXTROSE 50% WATER 50ML SYRINGE IV PRN (10:00)
[2023-02-12] MEDS: INSULIN LISPRO 100 UNITS/ML SUBCUT SCH ×2 (13:20→21:00)
[2023-02-12] MEDS: BLOOD SUGAR DIAGNOSTIC STRIP TEST SCH ×3 (13:36→20:30)
[2023-02-12] MEDS ORDERED: AZITHROMYCIN 500MG/250ML 250 ML IV NR (14:30)
[2023-02-12] MEDS ORDERED: PIPERACILLIN/TAZ 3.375G PREMIX 50 ML IV SCH (14:30)
[2023-02-12] MEDS: FUROSEMIDE 40MG/4ML VIAL IVP SCH (15:30)
[2023-02-12] MEDS: LEVETIRACETAM 500MG TABLET PO SCH ×2 (15:30→21:20)
[2023-02-12 16:00] VITALS: BP 118/64
[2023-02-12 18:00] VITALS: BP 120/63
[2023-02-12] MEDS: METOPROLOL TARTRATE 25MG TABLET PO SCH (18:29)
[2023-02-12 20:00] VITALS: BP 167/97
[2023-02-12 20:13] LABS: BASOPHILS % 1.2 % (0.0-2.0); EOSINOPHILS % 4.6 % (0.0-5.0); HEMATOCRIT. 29.3 % (42.0-52.0); HEMOGLOBIN. 9.8 g/dL (14.0-18.0); LYMPHOCYTES % 12.7 % (20.0-50.0); MEAN CORPUSCULAR HEMOGLOBIN 27.4 pg (28.0-32.0); MEAN CORPUSCULAR VOLUME 82.2 fL (80.0-94.0); MEAN PLATELET VOLUME 9.8 fl (7.4-10.4); MONOCYTES % 9.6 % (2.0-8.0); NEUTROPHILS % 71.9 % (40.0-76.0); PLATELET 227 x1000/uL (130-400); RED BLOOD CELL COUNT 3.57 mill/uL (4.7-6.1)
[2023-02-12 20:27] LABS: CREATINE KINASE MB FRACTION 2.6 ng/mL (0.5-3.6)
[2023-02-12] MEDS ORDERED: IPRATROPIUM/ALBUTEROL 0.5-3(2.5)MG/3ML NEB HHN PRN (20:30)
[2023-02-12] MEDS: FAMOTIDINE 20MG TABLET PO SCH (21:19)
[2023-02-12] MEDS: ATORVASTATIN CALCIUM 20MG TABLET PO SCH (21:20)
[2023-02-12 23:38] LABS: CREATINE KINASE MB FRACTION 2.8 ng/mL (0.5-3.6)
[2023-02-12] MEDS: PIPERACILLIN/TAZOBACTAM 3.375 G in DEXTROSE 5% WATER 50 ML IV SCH (23:51)
[2023-02-13] VITALS: BP 123/38
[2023-02-13 04:00] VITALS: BP_SYST 127; BP_DIAS 43; BP_DIAS 45
[2023-02-13] MEDS: BLOOD SUGAR DIAGNOSTIC STRIP TEST SCH ×3 (05:23→16:40)
[2023-02-13] MEDS: INSULIN LISPRO 100 UNITS/ML SUBCUT SCH ×4 (05:59→21:34)
[2023-02-13] MEDS ORDERED: HEPARIN 100 UNITS/1 ML VIAL IVF PRN (06:00)
[2023-02-13] MEDS: PIPERACILLIN/TAZOBACTAM 3.375 G in DEXTROSE 5% WATER 50 ML IV SCH ×3 (06:01→22:21)
[2023-02-13 07:08] LABS: BASOPHILS % 1.3 % (0.0-2.0); HEMATOCRIT. 26.4 % (42.0-52.0); HEMOGLOBIN. 8.9 g/dL (14.0-18.0); LYMPHOCYTES % 13.5 % (20.0-50.0); MEAN CORPUSCULAR HEMOGLOBIN 27.6 pg (28.0-32.0); MEAN CORPUSCULAR VOLUME 82.1 fL (80.0-94.0); MEAN PLATELET VOLUME 9.4 fl (7.4-10.4); MONOCYTES % 8.6 % (2.0-8.0); NEUTROPHILS % 70.6 % (40.0-76.0); PLATELET 261 x1000/uL (130-400); RED BLOOD CELL COUNT 3.22 mill/uL (4.7-6.1); RED CELL DISTRIBUTION WIDTH 14.1 % (11.6-14.6)
[2023-02-13 08:00] VITALS: BP 140/57
[2023-02-13 08:29] LABS: CHLORIDE 104 mEq/L (98-107)
[2023-02-13 08:53] LABS: T4 FREE 1.12 ng/dL (0.76-1.46)
[2023-02-13] MEDS ORDERED: ASPIRIN 81MG EC TABLET PO SCH (09:00)
[2023-02-13] MEDS: LEVETIRACETAM 500MG TABLET PO SCH ×2 (09:04→21:31)
[2023-02-13] MEDS: METOPROLOL TARTRATE 25MG TABLET PO SCH ×2 (09:04→18:12)
[2023-02-13] MEDS: FUROSEMIDE 40MG/4ML VIAL IVP SCH (09:05)
[2023-02-13] MEDS: ENOXAPARIN 40MG/0.4ML SYR SUBCUT SCH (09:05)
[2023-02-13] MEDS: AZITHROMYCIN 500 MG in DEXT 5% WATER 250 ML IV SCH (10:18)
[2023-02-13] MEDS ORDERED: IOHEXOL-350 100 ML BOTTLE ONE (10:35)
[2023-02-13 12:00] VITALS: BP 143/50
[2023-02-13] MEDS: AMLODIPINE 5MG TABLET PO SCH (15:30)
[2023-02-13 16:00] VITALS: BP 125/80
[2023-02-13 20:00] VITALS: BP 154/57
[2023-02-13] MEDS: ATORVASTATIN CALCIUM 20MG TABLET PO SCH (21:32)
[2023-02-13] MEDS: FAMOTIDINE 20MG TABLET PO SCH (21:32)
[2023-02-13] MEDS: INSULIN GLARGINE 100 UNITS/ML SUBCUT SCH (21:34)
[2023-02-14] VITALS: BP 147/41
[2023-02-14 04:00] VITALS: BP 156/49
[2023-02-14] MEDS: PIPERACILLIN/TAZOBACTAM 3.375 G in DEXTROSE 5% WATER 50 ML IV SCH ×3 (05:42→21:57)
[2023-02-14 08:00] VITALS: BP 147/77
[2023-02-14] MEDS: BLOOD SUGAR DIAGNOSTIC STRIP TEST SCH ×7 (08:51→21:00)
[2023-02-14] MEDS: INSULIN LISPRO 100 UNITS/ML SUBCUT SCH ×4 (08:55→22:03)
[2023-02-14] MEDS: LEVETIRACETAM 500MG TABLET PO SCH ×2 (09:05→21:57)
[2023-02-14] MEDS: METOPROLOL TARTRATE 25MG TABLET PO SCH ×2 (09:09→17:25)
[2023-02-14] MEDS: AMLODIPINE 5MG TABLET PO SCH (09:09)
[2023-02-14] MEDS: ENOXAPARIN 40MG/0.4ML SYR SUBCUT SCH (09:11)
[2023-02-14 12:00] VITALS: BP 161/70
[2023-02-14] MEDS ORDERED: DEXTROSE 50% WATER 50ML SYRINGE IV PRN (12:00)
[2023-02-14] MEDS: AZITHROMYCIN 500 MG in DEXT 5% WATER 250 ML IV SCH (13:04)
[2023-02-14] MEDS: FUROSEMIDE 40MG/4ML VIAL IVP SCH (14:00)
[2023-02-14 16:00] VITALS: BP 139/61
[2023-02-14 20:00] VITALS: BP 149/56
[2023-02-14] MEDS: ATORVASTATIN CALCIUM 20MG TABLET PO SCH (21:57)
[2023-02-14] MEDS: FAMOTIDINE 20MG TABLET PO SCH (21:57)
[2023-02-14] MEDS: INSULIN GLARGINE 100 UNITS/ML SUBCUT SCH (22:02)
[2023-02-15] VITALS: BP 126/66
[2023-02-15 04:00] VITALS: BP 147/65
[2023-02-15] MEDS: PIPERACILLIN/TAZOBACTAM 3.375 G in DEXTROSE 5% WATER 50 ML IV SCH ×3 (05:11→22:22)
[2023-02-15] MEDS: INSULIN LISPRO 100 UNITS/ML SUBCUT SCH ×4 (06:36→21:00)
[2023-02-15] MEDS: BLOOD SUGAR DIAGNOSTIC STRIP TEST SCH ×4 (06:37→21:00)
[2023-02-15 08:00] VITALS: BP 156/63
[2023-02-15] MEDS: AZITHROMYCIN 500 MG TABLET PO SCH (08:57)
[2023-02-15] MEDS: METOPROLOL TARTRATE 25MG TABLET PO SCH ×2 (08:58→18:47)
[2023-02-15] MEDS: AMLODIPINE 10MG TABLET PO SCH (08:58)
[2023-02-15] MEDS: LEVETIRACETAM 500MG TABLET PO SCH ×2 (08:59→22:21)
[2023-02-15] MEDS: FUROSEMIDE 40MG/4ML VIAL IVP SCH (08:59)
[2023-02-15] MEDS: ENOXAPARIN 40MG/0.4ML SYR SUBCUT SCH (09:00)
[2023-02-15 09:25] LABS: BASOPHILS % 1.2 % (0.0-2.0); EOSINOPHILS % 7.3 % (0.0-5.0); HEMATOCRIT. 27.3 % (42.0-52.0); HEMOGLOBIN. 9.1 g/dL (14.0-18.0); LYMPHOCYTES % 16.9 % (20.0-50.0); MEAN CORPUSCULAR HEMOGLOBIN 27.2 pg (28.0-32.0); MEAN CORPUSCULAR VOLUME 81.7 fL (80.0-94.0); MEAN PLATELET VOLUME 9.9 fl (7.4-10.4); MONOCYTES % 9.2 % (2.0-8.0); NEUTROPHILS % 65.4 % (40.0-76.0); PLATELET 212 x1000/uL (130-400); RED BLOOD CELL COUNT 3.34 mill/uL (4.7-6.1)
[2023-02-15 09:39] LABS: CHLORIDE 103 mEq/L (98-107)
[2023-02-15] MEDS ORDERED: REGADENOSON 0.4 MG/5 ML IV SCH (10:45)
[2023-02-15 12:00] VITALS: BP 151/69
[2023-02-15] MEDS ORDERED: CAFFEINE CITRATE 20MG/ML 3ML VIAL IV ONE (14:23)
[2023-02-15] MEDS ORDERED: HYDRALAZINE 20MG/ML VIAL ONE (15:44)
[2023-02-15 18:00] VITALS: BP 143/67
[2023-02-15 20:00] VITALS: BP 123/62
[2023-02-15] MEDS: INSULIN GLARGINE 100 UNITS/ML SUBCUT SCH (22:00)
[2023-02-15] MEDS: ATORVASTATIN CALCIUM 20MG TABLET PO SCH (22:22)
[2023-02-15] MEDS: FAMOTIDINE 20MG TABLET PO SCH (22:22)
[2023-02-16] VITALS: BP 145/77
[2023-02-16 04:00] VITALS: BP 148/61
[2023-02-16] MEDS: BLOOD SUGAR DIAGNOSTIC STRIP TEST SCH ×2 (06:48→11:46)
[2023-02-16] MEDS: PIPERACILLIN/TAZOBACTAM 3.375 G in DEXTROSE 5% WATER 50 ML IV SCH ×2 (06:49→13:03)
[2023-02-16 08:00] VITALS: BP_SYST 143; BP_SYST 99; BP_DIAS 62; BP_DIAS 69
[2023-02-16] MEDS: AMLODIPINE 10MG TABLET PO SCH (08:40)
[2023-02-16] MEDS: METOPROLOL TARTRATE 25MG TABLET PO SCH (08:40)
[2023-02-16] MEDS: LEVETIRACETAM 500MG TABLET PO SCH (08:40)
[2023-02-16] MEDS: AZITHROMYCIN 500 MG TABLET PO SCH (08:40)
[2023-02-16] MEDS: ENOXAPARIN 40MG/0.4ML SYR SUBCUT SCH (08:40)
[2023-02-16] MEDS: INSULIN LISPRO 100 UNITS/ML SUBCUT SCH ×2 (08:59→13:10)
[2023-02-16 12:00] VITALS: BP 138/66
[2023-02-16 13:36] VITALS: BP 138/66
== END 2023-02-16 04:30 | disposition home health service (06) | DRG 871 ==
LOC: ER 00:29 → 7EST 05:07
PROVIDERS: ADMIT Internal Medicine; ATTEND Internal Medicine
PROC: 02HV33Z Insertion of Infusion Device into Superior Vena Cava, Percutaneous Approach (ICD-10-PCS; principal; 2023-02-12)
PROC: B548ZZA Ultrasonography of Superior Vena Cava, Guidance (ICD-10-PCS; 2023-02-12)
DX: A41.9 Sepsis, unspecified organism (principal); I21.4 Non-ST elevation (NSTEMI) myocardial infarction; J96.01 Acute respiratory failure with hypoxia; J18.9 Pneumonia, unspecified organism; I50.23 Acute on chronic systolic (congestive) heart failure; I16.1 Hypertensive emergency; N17.9 Acute kidney failure, unspecified; E11.65 Type 2 diabetes mellitus with hyperglycemia; I11.0 Hypertensive heart disease with heart failure; Z20.822 Contact with and (suspected) exposure to COVID-19; E78.5 Hyperlipidemia, unspecified; G40.909 Epilepsy, unspecified, not intractable, without status epilepticus; I25.10 Atherosclerotic heart disease of native coronary artery without angina pectoris; Z79.82 Long term (current) use of aspirin; Z86.61 Personal history of infections of the central nervous system; Z86.73 Personal history of transient ischemic attack (TIA), and cerebral infarction without residual deficits; I25.2 Old myocardial infarction; Z98.2 Presence of cerebrospinal fluid drainage device; Z79.899 Other long term (current) drug therapy
CPT/HCPCS: 36415; 36573; 36600; 71045; 71275; 74174; 78452; 80053; 80305; 80320; 81003; 82375; 82542; 82550; 82553; 82805; 82962; 83036; 83605; 83880; 84145; 84439; 84443; 84484; 85025; 85379; 87426; 93005; 93017; 93306; 93970; 97162; 99291; A9500; C1725; J0360; J0456; J0706; J1644; J1650; J1815; J1940; J2543; J2785; J3490; J7060; Q9967; G0480